=== PATIENT | male | born 1990 | race Caucasian/White ===

== ENCOUNTER 2017-06-14 16:36 | Emergency (ER) | payer OTHER ==
[~2017-06-14] VITALS: Ht 182.9 cm; Wt 104.5 kg
[~2017-06-14 16:36] MED LIST: CLARITIN D TAB1 TAB PO; NORCO 325 MG-51 TAB PO; VALIUM 5MG T5 MG/TAB PO
[2017-06-14 16:38] VITALS: BP 152/94; PULSE 97; TEMP 98.2
== END 2017-06-14 18:11 | disposition left against medical advice (07) ==
LOC: COL.ER 16:36
DX: S61.212A Laceration without foreign body of right middle finger without damage to nail, initial encounter (principal); X58.XXXA Exposure to other specified factors, initial encounter

== ENCOUNTER 2018-02-20 13:31 | Outpatient (RCR) | payer OTHER | END 2018-03-04 15:37 | disposition home or self-care (01) | LOC: WSOH 13:31 | DX: S61.032A Puncture wound without foreign body of left thumb without damage to nail, initial encounter (principal); W46.0XXA Contact with hypodermic needle, initial encounter; Y92.214 College as the place of occurrence of the external cause; Y99.0 Civilian activity done for income or pay; Z79.899 Other long term (current) drug therapy; Z23 Encounter for immunization ==

== ENCOUNTER 2020-01-12 12:32 | Emergency (ER) | payer BC ==
[~2020-01-12] VITALS: Ht 182.9 cm; Wt 95.5 kg
[2020-01-12 12:39] VITALS: TEMP 98.2
[2020-01-12 12:58] LABS: BASO # 0.1 (0.0-0.2); BASO % 0.7 % (0.0-2.0); EOS # 0.7 (0.0-0.7); EOS % 9.3 % (0-4.0); GRAN # 2.6 (1.4-6.5); HEMATOCRIT 45.7 % (42.0-52.0); LYMPH # 3.3 (1.2-3.4); LYMPH % 45.3 % (20.0-51.0); MEAN CELL VOLUME 84 fl (80.0-100.0); MEAN CORPUSCULAR HEMOGLOBIN 29 pg (27.0-31.0); MEAN CORPUSCULAR HGB CONC 35 g/dl (33.0-37.0); MEAN PLATELET VOLUME 10.1 fl (7.4-10.4); MONO # 0.6 (0.1-0.6); MONO % 8.6 % (1.7-9.3); PLATELET COUNT 305 K/mm3 (130-400); RED BLOOD COUNT 5.44 M/mm3 (4.20-5.60); REDCELL DISTRIBUTION WIDTH-CV 12.4 % (11.5-14.5)
[2020-01-12 13:08] LABS: ALANINE AMINOTRANSFERASE 25 U/L (4-49); ALBUMIN 5.1 gm/dL (3.5-5.0); ALKALINE PHOSPHATASE 91 U/L (50-136); ANION GAP 13 mmol/L (7-16); AST,SGOT 25 U/L (15-37); BILIRUBIN,TOTAL 0.7 mg/dL (0.0-1.0); BLOOD UREA NITROGEN 13 mg/dL (9-20); CALCIUM 9.4 mg/dL (8.4-10.2); CARBON DIOXIDE 23 mmol/L (22-30); CHLORIDE 103 mmol/L (98-107); CREATININE, serum 0.82 (0.66-1.25); GLUCOSE 98 mg/dL (74-106); POTASSIUM 3.8 mmol/L (3.4-5.0); SODIUM 139 mmol/L (137-145); TOTAL PROTEIN 8.1 gm/dL (6.4-8.2)
[2020-01-12 13:21] LABS: TROPONIN-I < 0.012 ng/mL (0.000-0.035)
[2020-01-12] MEDS ORDERED: ATIVAN 0.50.5 MG/TAB PO (15:02)
[2020-01-12 15:34] VITALS: BP 125/82; PULSE 75
== END 2020-01-12 15:35 | disposition home or self-care (01) ==
LOC: COL.ER 12:32
PROVIDERS: Physician Assistant
DX: R07.89 Other chest pain (principal); F41.9 Anxiety disorder, unspecified; F17.210 Nicotine dependence, cigarettes, uncomplicated
CPT/HCPCS: J1885; J2060

== ENCOUNTER 2020-01-18 07:52 | Emergency (ER) | payer BC ==
[~2020-01-18] VITALS: Ht 182.9 cm; Wt 95.5 kg
[~2020-01-18 07:52] MED LIST changes: +ATIVAN 0.50.5 MG/TAB PO
[2020-01-18 08:08] VITALS: TEMP 97.4
[2020-01-18] MEDS ORDERED: ZYRTEC 10MG10 MG PO (08:28)
[2020-01-18 09:12] LABS: BASO # 0.1 (0.0-0.2); BASO % 0.8 % (0.0-2.0); EOS # 0.3 (0.0-0.7); EOS % 5.2 % (0-4.0); HEMATOCRIT 45.5 % (42.0-52.0); HEMOGLOBIN 15.6 g/dl (13.5-18.0); LYMPH # 1.7 (1.2-3.4); LYMPH % 26.1 % (20.0-51.0); MEAN CELL VOLUME 85 fl (80.0-100.0); MEAN CORPUSCULAR HEMOGLOBIN 29 pg (27.0-31.0); MEAN CORPUSCULAR HGB CONC 34 g/dl (33.0-37.0); MONO # 0.5 (0.1-0.6); MONO % 7.6 % (1.7-9.3); PLATELET COUNT 279 K/mm3 (130-400); RED BLOOD COUNT 5.38 M/mm3 (4.20-5.60); REDCELL DISTRIBUTION WIDTH-CV 12.2 % (11.5-14.5)
[2020-01-18 09:20] LABS: INR 1.1 (0.8-3.0)
[2020-01-18 09:22] LABS: PARTIAL THROMBOPLASTIN TIME 34.7 SECONDS (26.0-37.0)
[2020-01-18 09:27] LABS: ALANINE AMINOTRANSFERASE 26 U/L (4-49); ALBUMIN 4.9 gm/dL (3.5-5.0); ALKALINE PHOSPHATASE 71 U/L (50-136); ANION GAP 10 mmol/L (7-16); AST,SGOT 23 U/L (15-37); BILIRUBIN,TOTAL 0.6 mg/dL (0.0-1.0); BLOOD UREA NITROGEN 15 mg/dL (9-20); CALCIUM 9.4 mg/dL (8.4-10.2); CARBON DIOXIDE 24 mmol/L (22-30); CHLORIDE 107 mmol/L (98-107); CREATININE, serum 0.79 (0.66-1.25); GLUCOSE 108 mg/dL (74-106); SODIUM 140 mmol/L (137-145); TOTAL PROTEIN 7.7 gm/dL (6.4-8.2)
[2020-01-18 09:38] LABS: C-REACTIVE PROTEIN < 0.5 mg/dL (0.0-0.9); TROPONIN-I < 0.012 ng/mL (0.000-0.035)
[2020-01-18] MEDS ORDERED: ATIVAN 0.50.5 MG/TAB PO (11:03)
[2020-01-18 11:18] VITALS: BP 121/78; PULSE 77
== END 2020-01-18 11:18 | disposition home or self-care (01) ==
LOC: COL.ER 07:52
PROVIDERS: Family Medicine
DX: F41.0 Panic disorder [episodic paroxysmal anxiety] (principal); R07.89 Other chest pain; R11.0 Nausea
CPT/HCPCS: Q9967

== ENCOUNTER 2020-02-12 10:23 | Emergency (ER) | payer BC ==
[~2020-02-12] VITALS: Ht 182.9 cm; Wt 95.5 kg
[~2020-02-12 10:23] MED LIST changes: +ZYRTEC 10MG10 MG PO
[2020-02-12 10:31] VITALS: BP 146/99; TEMP 97.3
[2020-02-12 11:35] VITALS: PULSE 108
== END 2020-02-12 11:36 | disposition home or self-care (01) ==
LOC: COL.ER 10:23
DX: R52 Pain, unspecified (principal); R00.0 Tachycardia, unspecified

== ENCOUNTER → 2023-02-25 | Outpatient (CLI) | payer OTHER | LOC: COL.RAD 09:51 | DX: E04.1 Nontoxic single thyroid nodule (principal) ==